=== PATIENT | female | born 1980 | race Caucasian/White ===

== ENCOUNTER 2017-04-04 16:54 | Emergency (ER) | payer SELFPAY, MEDICAID | END 2017-04-04 19:17 | disposition home or self-care (01) | LOC: FTE 16:54 | DX: S03.2XXA Dislocation of tooth, initial encounter (principal); W18.39XA Other fall on same level, initial encounter; Y92.9 Unspecified place or not applicable | CPT/HCPCS: 99284 ==

== ENCOUNTER 2017-04-05 10:57 | Emergency (ER) | payer SELFPAY | END 2017-04-05 11:35 | disposition home or self-care (01) | LOC: E/R 11:35 → FTE 10:57 | DX: S02.5XXA Fracture of tooth (traumatic), initial encounter for closed fracture (principal); X58.XXXA Exposure to other specified factors, initial encounter; Y92.9 Unspecified place or not applicable | CPT/HCPCS: 99283 ==

== ENCOUNTER 2017-04-14 08:28 | Emergency (ER) | payer SELFPAY | END 2017-04-14 09:18 | disposition home or self-care (01) | LOC: FTE 08:28 | DX: K08.89 Other specified disorders of teeth and supporting structures (principal) | CPT/HCPCS: 99283 ==

== ENCOUNTER 2017-04-17 16:46 | Emergency (ER) | payer SELFPAY | END 2017-04-17 17:04 | disposition home or self-care (01) | LOC: FTE 16:46 → E/R 17:04 | DX: K08.89 Other specified disorders of teeth and supporting structures (principal) | CPT/HCPCS: 99282 ==

== ENCOUNTER 2017-04-20 11:55 | Emergency (ER) | payer SELFPAY ==
[2017-04-20] MEDS: LIDOCAINE 2% VISC 15 ML CUP PO (15:33)
[2017-04-20] MEDS: ACETAMINOPHEN 160 MG/5ML CUP PO (15:33)
[2017-04-20] MEDS: DIPHENHYDRAMINE 2.5 MG/ML 5ML CUP PO (15:34)
== END 2017-04-20 16:46 | disposition left against medical advice (07) ==
LOC: FTE 16:46
DX: K08.89 Other specified disorders of teeth and supporting structures (principal)
CPT/HCPCS: 99283